=== PATIENT | female | born 1930 | race Caucasian/White ===

== ENCOUNTER → 2016-11-20 | Outpatient (REF) | payer MEDICARE, MEDICAID ==
[~2016-11-20] MED LIST: /MOXI40TA OR; ACET65TA OR; BABY81CH; BISO10TA2 OR; CORE12.5 OR; COZA100T OR; FURO20TA2 PO; HYDR-727; INDAPAMIDE; LANO0.1211 OR; MIRALEX OR; NITR0.4S SL; OLOP1OPD OU; OMEP20TA7 OR; POTA20TA2; PROA1AER INH; VITA100066 PO; WARF-20 PO; WARF1TAB OR; [UNRECOGNIZED DRUG - OTHER] OU
[2016-11-20 10:49] LABS: INR 1.81
== END ==
PROVIDERS: ATTEND Internal Medicine
DX: I48.0 Paroxysmal atrial fibrillation (principal); Z79.01 Long term (current) use of anticoagulants

== ENCOUNTER → 2016-12-25 | Outpatient (REF) | payer MEDICARE, MEDICAID ==
[2016-12-25 12:47] LABS: INR 1.74
== END ==
PROVIDERS: ATTEND Internal Medicine
DX: I48.0 Paroxysmal atrial fibrillation (principal); Z79.01 Long term (current) use of anticoagulants

== ENCOUNTER → 2017-01-01 | Outpatient (REF) | payer MEDICARE, MEDICAID ==
[2017-01-01 11:02] LABS: INR 1.88
== END | disposition home or self-care (01) ==
PROVIDERS: ATTEND Internal Medicine
DX: Z51.81 Encounter for therapeutic drug level monitoring (principal); Z79.01 Long term (current) use of anticoagulants; I48.0 Paroxysmal atrial fibrillation

== ENCOUNTER → 2017-01-08 | Outpatient (REF) | payer MEDICARE, MEDICAID ==
[2017-01-08 09:30] LABS: INR 1.63
== END ==
PROVIDERS: ATTEND Internal Medicine
DX: I48.0 Paroxysmal atrial fibrillation (principal); Z79.01 Long term (current) use of anticoagulants

== ENCOUNTER → 2017-01-15 | Outpatient (REF) | payer MEDICARE, MEDICAID ==
[2017-01-15 12:21] LABS: INR 2.1
== END ==
PROVIDERS: ATTEND Internal Medicine
DX: Z79.01 Long term (current) use of anticoagulants (principal); I48.0 Paroxysmal atrial fibrillation

== ENCOUNTER → 2017-01-21 | Outpatient (REF) | payer MEDICARE, MEDICAID ==
[2017-01-22 13:16] LABS: PERCENT SATURATION 6.8 % (13.2-37.4)
== END ==
LOC: M LAB REF 12:30
PROVIDERS: ATTEND Internal Medicine
DX: D64.9 Anemia, unspecified (principal)

== ENCOUNTER → 2017-01-22 | Outpatient (REF) | payer MEDICARE, MEDICAID | PROVIDERS: ATTEND Internal Medicine | DX: Z79.01 Long term (current) use of anticoagulants (principal); I48.0 Paroxysmal atrial fibrillation ==

== ENCOUNTER → 2017-01-29 | Outpatient (REF) | payer MEDICARE, MEDICAID ==
[2017-01-29 11:25] LABS: INR 2.67
== END ==
PROVIDERS: ATTEND Internal Medicine
DX: I48.0 Paroxysmal atrial fibrillation (principal); Z79.01 Long term (current) use of anticoagulants

== ENCOUNTER → 2017-02-05 | Outpatient (REF) | payer MEDICARE, MEDICAID ==
[2017-02-05 10:24] LABS: INR 2.58
== END ==
PROVIDERS: ATTEND Internal Medicine
DX: I48.0 Paroxysmal atrial fibrillation (principal); Z79.01 Long term (current) use of anticoagulants

== ENCOUNTER → 2017-02-12 | Outpatient (REF) | payer MEDICARE, MEDICAID ==
[2017-02-12 10:02] LABS: INR 2.76
== END ==
PROVIDERS: ATTEND Internal Medicine
DX: I48.0 Paroxysmal atrial fibrillation (principal); Z79.01 Long term (current) use of anticoagulants

== ENCOUNTER → 2017-02-26 | Outpatient (REF) | payer MEDICARE, MEDICAID ==
[2017-02-26 11:33] LABS: INR 3.36
== END ==
PROVIDERS: ATTEND Internal Medicine
DX: Z79.01 Long term (current) use of anticoagulants (principal); I48.0 Paroxysmal atrial fibrillation

== ENCOUNTER → 2017-03-05 | Outpatient (REF) | payer MEDICARE, MEDICAID ==
[2017-03-05 11:12] LABS: INR 3.18
== END ==
PROVIDERS: ATTEND Internal Medicine
DX: Z79.01 Long term (current) use of anticoagulants (principal); I48.2 Chronic atrial fibrillation

== ENCOUNTER → 2017-03-13 | Outpatient (REF) | payer MEDICARE, MEDICAID ==
[2017-03-13 11:28] LABS: VITAMIN B12 LEVEL 1266 PG/ML (247-911)
== END ==
PROVIDERS: ATTEND Internal Medicine
DX: D51.9 Vitamin B12 deficiency anemia, unspecified (principal); D64.9 Anemia, unspecified

== ENCOUNTER → 2017-03-19 | Outpatient (REF) | payer MEDICARE, MEDICAID ==
[2017-03-19 11:18] LABS: INR 2.86
== END ==
PROVIDERS: ATTEND Internal Medicine
DX: Z79.01 Long term (current) use of anticoagulants (principal); I48.0 Paroxysmal atrial fibrillation

== ENCOUNTER → 2017-03-26 | Outpatient (REF) | payer MEDICARE, MEDICAID ==
[2017-03-26 12:39] LABS: INR 2.9
== END ==
PROVIDERS: ATTEND Internal Medicine
DX: Z79.01 Long term (current) use of anticoagulants (principal); I48.0 Paroxysmal atrial fibrillation

== ENCOUNTER → 2017-04-16 | Outpatient (REF) | payer MEDICARE, MEDICAID ==
[2017-04-16 11:07] LABS: INR 2.48
== END ==
PROVIDERS: ATTEND Internal Medicine
DX: I48.91 Unspecified atrial fibrillation (principal)

== ENCOUNTER → 2017-05-07 | Outpatient (REF) | payer MEDICARE, MEDICAID ==
[~2017-05-07] MED LIST changes: +ASPI1TAB PO; +COZA100T2 PO; +DIGO0.12 PO; +FE G325T PO; +MIRA3350 PO; +OMEP40CA2 PO; +PRESCAP6 PO; +SENN-15 PO; +TYLE325T5 PO; +VITA500T3 PO; +ZEBE1TAB PO
[2017-05-07 11:00] LABS: INR 2.72
== END ==
PROVIDERS: ATTEND Internal Medicine
DX: Z79.01 Long term (current) use of anticoagulants (principal); I48.0 Paroxysmal atrial fibrillation

== ENCOUNTER 2017-05-08 09:52 | Emergency (ER) | payer MEDICARE, MEDICAID ==
[~2017-05-08] VITALS: Ht 147.3 cm; Wt 46.2 kg
[~2017-05-08 09:52] MED LIST changes: -ASPI1TAB PO; -COZA100T2 PO; -DIGO0.12 PO; -FE G325T PO; -MIRA3350 PO; -OMEP40CA2 PO; -PRESCAP6 PO; -PROA1AER INH; +PROAAER10 INH; -SENN-15 PO; -TYLE325T5 PO; -VITA500T3 PO; -ZEBE1TAB PO
[2017-05-08 09:53] VITALS: BP 185/91
[2017-05-08] MEDS ORDERED: MIRA3350 PO (10:20)
[2017-05-08] MEDS ORDERED: PRESCAP6 PO (10:20)
[2017-05-08] MEDS ORDERED: DIGO0.12 PO (10:20)
[2017-05-08] MEDS ORDERED: FE G325T PO (10:20)
[2017-05-08] MEDS ORDERED: COZA100T2 PO (10:20)
[2017-05-08] MEDS ORDERED: SENN-3 PO (10:20)
[2017-05-08] MEDS ORDERED: ASPI1TAB PO (10:20)
[2017-05-08] MEDS ORDERED: ZEBE1TAB PO (10:20)
[2017-05-08] MEDS ORDERED: TYLE325T5 PO (10:20)
[2017-05-08] MEDS ORDERED: VITA500T3 PO (10:20)
[2017-05-08] MEDS ORDERED: OMEP40CA2 PO (10:20)
[2017-05-08] MEDS ORDERED: FLEET OIL RETENTION ENEMA PR PRN (11:15)
[2017-05-08] MEDS ORDERED: MAGNESIUM CITRATE 300 ML BTL PO ONE (12:15)
== END 2017-05-08 12:43 | disposition home or self-care (01) ==
LOC: M ED 10:50
DX: K56.41 Fecal impaction (principal); K59.00 Constipation, unspecified; I25.2 Old myocardial infarction; Z85.00 Personal history of malignant neoplasm of unspecified digestive organ; E78.00 Pure hypercholesterolemia, unspecified; N19 Unspecified kidney failure; Z95.0 Presence of cardiac pacemaker; Z90.3 Acquired absence of stomach [part of]; Z79.82 Long term (current) use of aspirin; Z79.01 Long term (current) use of anticoagulants; Z79.899 Other long term (current) drug therapy; Z88.0 Allergy status to penicillin; Z88.8 Allergy status to other drugs, medicaments and biological substances; Z88.1 Allergy status to other antibiotic agents

== ENCOUNTER → 2017-06-04 | Outpatient (REF) | payer MEDICARE, MEDICAID ==
[~2017-06-04] MED LIST changes: +ASPI1TAB PO; +COZA100T2 PO; +DIGO0.12 PO; +FE G325T PO; +MIRA3350 PO; +OMEP40CA2 PO; +PRESCAP6 PO; +SENN-3 PO; +TYLE325T5 PO; +VITA500T3 PO; +ZEBE1TAB PO
[2017-06-04 10:01] LABS: CALCIUM LEVEL 9.9 MG/DL (8.8-10.2); CREATININE FOR GFR 0.96 MG/DL (0.55-1.02); GLOMERULAR FILTRATION RATE 58.4 (>32)
== END ==
PROVIDERS: ATTEND Nurse Practitioner Family
DX: I10 Essential (primary) hypertension (principal)

== ENCOUNTER → 2017-06-04 | Outpatient (REF) | payer MEDICARE, MEDICAID ==
[2017-06-04 09:37] LABS: INR 2.54
== END ==
PROVIDERS: ATTEND Internal Medicine
DX: I48.0 Paroxysmal atrial fibrillation (principal); Z51.81 Encounter for therapeutic drug level monitoring; Z79.01 Long term (current) use of anticoagulants; I10 Essential (primary) hypertension

== ENCOUNTER → 2017-07-15 | Outpatient (REF) | payer MEDICARE, MEDICAID ==
[2017-07-15 19:10] LABS: FERRITIN 48 NG/ML (8-252)
[2017-07-15 19:25] LABS: VITAMIN B12 LEVEL 1459 PG/ML (247-911)
== END ==
LOC: M LAB REF 16:34
PROVIDERS: ATTEND Internal Medicine
DX: D50.9 Iron deficiency anemia, unspecified (principal)

== ENCOUNTER → 2017-08-27 | Outpatient (CLI) | payer MEDICARE, MEDICAID ==
[2017-08-27 19:40] LABS: INR 2.24
== END ==
LOC: M SMT 14:47
PROVIDERS: ATTEND Internal Medicine
DX: Z79.01 Long term (current) use of anticoagulants (principal); I48.0 Paroxysmal atrial fibrillation

== ENCOUNTER → 2017-09-24 | Outpatient (REF) | payer MEDICARE, MEDICAID ==
[2017-09-24 13:18] LABS: INR 2.91
== END ==
PROVIDERS: ATTEND Internal Medicine
DX: I48.0 Paroxysmal atrial fibrillation (principal); Z79.01 Long term (current) use of anticoagulants

== ENCOUNTER → 2017-10-22 | Outpatient (REF) | payer MEDICARE, MEDICAID ==
[2017-10-22 10:03] LABS: INR 2.55
== END ==
PROVIDERS: ATTEND Internal Medicine
DX: Z51.81 Encounter for therapeutic drug level monitoring (principal); Z79.01 Long term (current) use of anticoagulants; I48.0 Paroxysmal atrial fibrillation

== ENCOUNTER → 2017-12-17 | Outpatient (REF) | payer MEDICARE, MEDICAID ==
[2017-12-17 11:40] LABS: INR 2.76; PROTHROMBIN TIME 30.4 SECONDS (12.4-14.5)
== END ==
DX: Z79.01 Long term (current) use of anticoagulants (principal)
CPT/HCPCS: 85610

== ENCOUNTER → 2018-01-09 | Outpatient (REF) | payer MEDICARE, MEDICAID ==
[2018-01-09 18:08] LABS: PHOSPHORUS LEVEL 2.7 MG/DL (2.5-4.9)
[2018-01-09 18:08] LABS: IRON (FE) 105 UG/DL (50-170); PERCENT SATURATION 34.7 % (13.2-45.0); TOTAL IRON BINDING CAPACITY 303 UG/DL (250-450)
[2018-01-09 18:14] LABS: VITAMIN B12 LEVEL 438 PG/ML (247-911)
== END ==
LOC: M LAB REF 17:12
DX: D50.9 Iron deficiency anemia, unspecified (principal); D51.9 Vitamin B12 deficiency anemia, unspecified
CPT/HCPCS: 83550

== ENCOUNTER → 2018-01-14 | Outpatient (REF) | payer MEDICARE, MEDICAID ==
[2018-01-14 11:12] LABS: INR 2.59; PROTHROMBIN TIME 28.8 SECONDS (12.4-14.5)
== END ==
DX: Z79.01 Long term (current) use of anticoagulants (principal); I48.0 Paroxysmal atrial fibrillation
CPT/HCPCS: 85610

== ENCOUNTER → 2018-01-21 | Outpatient (REF) | payer MEDICARE, MEDICAID ==
[2018-01-21 11:05] LABS: CHOLESTEROL LEVEL 190 MG/DL (<200); CHOLESTEROL RISK RATIO 3.958 (<5); HDL CHOLESTEROL 48 MG/DL (>40); LDL CHOLESTEROL 110.6 MG/DL (<100); NON-HDL-C 142 MG/DL; TRIGLYCERIDES LEVEL 157 MG/DL (<150)
== END ==
DX: E78.5 Hyperlipidemia, unspecified (principal)
CPT/HCPCS: 80061

== ENCOUNTER → 2018-03-11 | Outpatient (REF) | payer MEDICARE, MEDICAID ==
[2018-03-11 10:53] LABS: INR 2.59; PROTHROMBIN TIME 28.8 SECONDS (12.4-14.5)
== END ==
DX: Z79.01 Long term (current) use of anticoagulants (principal); I48.0 Paroxysmal atrial fibrillation
CPT/HCPCS: 85610

== ENCOUNTER → 2018-04-08 | Outpatient (REF) | payer MEDICARE, MEDICAID ==
[2018-04-08 09:57] LABS: INR 2.76; PROTHROMBIN TIME 30.4 SECONDS (12.4-14.5)
== END ==
DX: I48.0 Paroxysmal atrial fibrillation (principal); Z79.01 Long term (current) use of anticoagulants
CPT/HCPCS: 85610

== ENCOUNTER → 2018-05-06 | Outpatient (REF) | payer MEDICARE, MEDICAID ==
[2018-05-06 09:57] LABS: INR 2.26; PROTHROMBIN TIME 25.8 SECONDS (12.4-14.5)
== END ==
DX: I48.0 Paroxysmal atrial fibrillation (principal); Z79.01 Long term (current) use of anticoagulants
CPT/HCPCS: 85610

== ENCOUNTER → 2018-06-03 | Outpatient (REF) | payer MEDICARE, MEDICAID ==
[2018-06-03 09:41] LABS: INR 2.64; PROTHROMBIN TIME 28.7 SECONDS (12.1-14.4)
== END ==
DX: I48.0 Paroxysmal atrial fibrillation (principal); Z79.01 Long term (current) use of anticoagulants
CPT/HCPCS: 85610

== ENCOUNTER → 2018-07-01 | Outpatient (REF) | payer MEDICARE, MEDICAID ==
[2018-07-01 09:36] LABS: INR 3.29; PROTHROMBIN TIME 34.2 SECONDS (12.1-14.4)
== END ==
DX: Z51.81 Encounter for therapeutic drug level monitoring (principal); Z79.01 Long term (current) use of anticoagulants; I48.0 Paroxysmal atrial fibrillation
CPT/HCPCS: 85610

== ENCOUNTER → 2018-07-08 | Outpatient (REF) | payer MEDICARE, MEDICAID ==
[2018-07-08 09:36] LABS: INR 2.32; PROTHROMBIN TIME 25.9 SECONDS (12.1-14.4)
== END ==
DX: I48.0 Paroxysmal atrial fibrillation (principal); Z79.01 Long term (current) use of anticoagulants
CPT/HCPCS: 85610

== ENCOUNTER → 2018-08-05 | Outpatient (REF) | payer MEDICARE, MEDICAID ==
[2018-08-05 10:22] LABS: INR 2.93; PROTHROMBIN TIME 31.2 SECONDS (12.1-14.4)
== END ==
DX: Z79.01 Long term (current) use of anticoagulants (principal); I48.0 Paroxysmal atrial fibrillation
CPT/HCPCS: 85610

== ENCOUNTER 2018-08-06 10:16 | Inpatient (IN) | payer MEDICARE, MEDICAID ==
[2018-08-06 11:03] LABS: BASO # 0.1 10^3/uL (0.0-0.2); BASO % 0.7 % (0.0-1.0); EOS # 0.1 10^3/uL (0.0-0.50); EOS % 1.2 % (0.0-3.0); HEMATOCRIT 42.4 % (36.0-47.0); HEMOGLOBIN 14.1 g/dl (12.0-15.5); IMMATURE GRANULOCYTE % 0.3 % (0-3.0); LYMPH # 1.6 10^3/uL (1.5-4.5); LYMPH % 22.1 % (24.0-44.0); MEAN CORPUSCULAR HEMOGLOBIN 29.8 pg (27.0-33.0); MEAN CORPUSCULAR HGB CONC 33.3 g/dl (32.0-36.5); MEAN CORPUSCULAR VOLUME 89.6 fl (80.0-96.0); MONO # 0.6 10^3/uL (0.0-0.8); MONO % 7.9 % (0.0-5.0); NEUTROPHILS % 67.8 % (36.0-66.0); PLATELET COUNT, AUTOMATED 193 10^3/uL (150-450); RED BLOOD COUNT 4.73 10^6/uL (4.00-5.40); RED CELL DISTRIBUTION WIDTH 14.3 % (11.5-14.5); WHITE BLOOD COUNT 7.4 10^3/uL (4.0-10.0)
[2018-08-06 11:10] LABS: INR 2.99; PROTHROMBIN TIME 31.7 SECONDS (12.1-14.4)
[2018-08-06] MEDS: NS 500 ML IV (11:17)
[2018-08-06 11:54] LABS: ALBUMIN 3.8 GM/DL (3.2-5.2); ALBUMIN/GLOBULIN RATIO 1.12 (1.00-1.93); ALKALINE PHOSPHATASE 107 U/L (45-117); ALT/SGPT 18 U/L (12-78); ANION GAP 5 MEQ/L (8-16); AST/SGOT 36 U/L (7-37); BILIRUBIN,DIRECT < 0.1 MG/DL (0.0-0.2); BILIRUBIN,TOTAL 0.4 MG/DL (0.2-1.0); BLOOD UREA NITROGEN 21 MG/DL (7-18); CALCIUM LEVEL 9.8 MG/DL (8.8-10.2); CARBON DIOXIDE LEVEL 36 MEQ/L (21-32); CHLORIDE LEVEL 97 MEQ/L (98-107); CPK CREATINE PHOSPHOKINASE 63 U/L (26-192); CREATININE FOR GFR 1.04 MG/DL (0.55-1.30); DIGOXIN LEVEL 1.3 NG/ML (0.5-2.0); GLOMERULAR FILTRATION RATE 53.1 (>32); GLUCOSE, FASTING 89 MG/DL (70-100); MB/CK RELATIVE INDEX 2.54 (< OR =4); POTASSIUM SERUM 4.1 MEQ/L (3.5-5.1); SODIUM LEVEL 138 MEQ/L (136-145); TOTAL PROTEIN 7.2 GM/DL (6.4-8.2); TROPONIN I 0.05 NG/ML (< 0.10)
[2018-08-06 12:46] LABS: KETONE, URINE AUTO RFX NEGATIVE (NEGATIVE); MUCUS, URINE RFX SMALL (NEGATIVE); NITRITE, URINE AUTO RFX NEGATIVE (NEGATIVE); RBC, URINE AUTO RFX 4 /HPF (0-3); SPECIFIC GRAVITY UR AUTO RFX 1.004 (1.002-1.035); SQUAM EPITHELIAL CELL UR AURFX 0 /HPF (0-6); WBC, URINE AUTO RFX 2 /HPF (0-3)
[2018-08-06 12:54] LABS: LEUKOCYTE ESTERASE UR AUTO RFX TRACE (NEGATIVE)
[2018-08-06] MEDS: LACTULOSE 20 GM/30 ML SYRUP UD PO ×2 (16:58→23:37)
[2018-08-06] MEDS: ONDANSETRON 4 MG ORAL DISINTEGRATING TAB (Q0162 PER 1MG) PO (18:45)
[2018-08-06] MEDS: KETOROLAC 60 MG/2 ML VIAL (J1885) IM (18:48)
[2018-08-06] MEDS: NS 1,000 ML IV (20:35)
[2018-08-06] MEDS ORDERED: NITROGLYCERIN 0.4 MG SUBL TABLET SL (21:00)
[2018-08-06] MEDS ORDERED: ALBUTEROL SULFATE 2.5 MG/0.5 ML INH NEB SOLN NEB (21:00)
[2018-08-06] MEDS: ANUSOL HC CREAM 30GM PR (21:00)
[2018-08-06] MEDS: ONDANSETRON 4MG/2ML VIAL (J2405) IV (21:24)
[2018-08-06] MEDS: MORPHINE 4 MG/ML 1ML VIAL/SYRINGE (J2270) IV (23:14)
[2018-08-06] MEDS: OCUVITE 1 TAB PO (23:37)
[2018-08-06] MEDS: SENOKOT S TAB PO (23:37)
[2018-08-06] MEDS: BISOPROLOL FUMARATE 10 MG TAB PO (23:38)
[2018-08-06] MEDS: LOSARTAN 50 MG TAB PO (23:38)
[2018-08-06] MEDS: BISACODYL 10 MG SUPP PR (23:39)
[2018-08-06] MEDS: ACETAMINOPHEN 650MG ER TAB (TYLENOL ARTHRITIS) PO (23:39)
[2018-08-07 06:49] LABS: BASO % 0.3 % (0.0-1.0); HEMATOCRIT 50.1 % (36.0-47.0); IMMATURE GRANULOCYTE % 0.2 % (0-3.0); LYMPH # 0.3 10^3/uL (1.5-4.5); LYMPH % 3.1 % (24.0-44.0); MEAN CORPUSCULAR HGB CONC 32.5 g/dl (32.0-36.5); MEAN CORPUSCULAR VOLUME 92.1 fl (80.0-96.0); MONO # 0.8 10^3/uL (0.0-0.8); MONO % 7.2 % (0.0-5.0); NEUTROPHILS # 9.8 10^3/uL (1.8-7.7); NEUTROPHILS % 89.2 % (36.0-66.0); PLATELET COUNT, AUTOMATED 188 10^3/uL (150-450); RED BLOOD COUNT 5.44 10^6/uL (4.00-5.40); RED CELL DISTRIBUTION WIDTH 14.8 % (11.5-14.5)
[2018-08-07 06:53] LABS: HEMOGLOBIN 16.3 g/dl (12.0-15.5)
[2018-08-07 07:00] LABS: INR 3.58; PROTHROMBIN TIME 36.6 SECONDS (12.1-14.4)
[2018-08-07 07:30] LABS: ANION GAP 15 MEQ/L (8-16); BLOOD UREA NITROGEN 27 MG/DL (7-18); CALCIUM LEVEL 10.7 MG/DL (8.8-10.2); CARBON DIOXIDE LEVEL 23 MEQ/L (21-32); CHLORIDE LEVEL 103 MEQ/L (98-107); CREATININE FOR GFR 1.68 MG/DL (0.55-1.30); FREE THYROXINE INDEX 3.5 % (1.3-4.8); GLOMERULAR FILTRATION RATE 30.5 (>32); GLUCOSE, FASTING 177 MG/DL (70-100); POTASSIUM SERUM 3.6 MEQ/L (3.5-5.1); SODIUM LEVEL 141 MEQ/L (136-145); T UPTAKE 34 % (30-39); THYROXINE (T4) 10.3 UG/DL (4.5-12.0)
[2018-08-07] MEDS: FERROUS GLUCONATE 324 MG TAB PO (09:37)
[2018-08-07] MEDS: OCUVITE 1 TAB PO ×2 (09:37→22:55)
[2018-08-07] MEDS: FUROSEMIDE 20 MG TAB PO (09:37)
[2018-08-07] MEDS: OMEPRAZOLE 20 MG CAP PO (09:37)
[2018-08-07] MEDS: SENOKOT S TAB PO ×2 (09:37→22:56)
[2018-08-07] MEDS: MIRALAX *UNIT DOSE* 17GM PACKET PO (09:37)
[2018-08-07] MEDS: ASPIRIN 81 MG ENTERIC TAB PO (09:37)
[2018-08-07] MEDS: ANUSOL HC CREAM 30GM PR ×2 (09:37→22:56)
[2018-08-07] MEDS: DIGOXIN 0.125 MG TAB PO (09:55)
[2018-08-07] MEDS: ACETAMINOPHEN 650MG ER TAB (TYLENOL ARTHRITIS) PO ×2 (10:28→22:55)
[2018-08-07] MEDS: NS 1,000 ML IV ×2 (10:30→23:18)
[2018-08-07] MEDS ORDERED: NS 1,000 ML IV (10:30)
[2018-08-07] MEDS: NS 500 ML IV (10:30)
[2018-08-07] MEDS: FLEET ENEMA PR (12:15)
[2018-08-07] MEDS ORDERED: FLEET OIL RETENTION ENEMA PR (14:45)
[2018-08-07] MEDS: traMADol 50 MG TAB PO (14:54)
[2018-08-07] MEDS ORDERED: WARFARIN SOD 2 MG TAB PO (17:00)
[2018-08-07] MEDS: FLEET OIL RETENTION ENEMA PR (17:24)
[2018-08-07] MEDS: SOD POLYSTYRENE SULFONATE SUSP 30 GM/120 ML ENEMA PR (21:29)
[2018-08-07] MEDS: BISOPROLOL FUMARATE 10 MG TAB PO (23:01)
[2018-08-08 06:44] LABS: HEMATOCRIT 46.9 % (36.0-47.0); HEMOGLOBIN 15.5 g/dl (12.0-15.5); MEAN CORPUSCULAR HEMOGLOBIN 29.9 pg (27.0-33.0); MEAN CORPUSCULAR VOLUME 90.5 fl (80.0-96.0); PLATELET COUNT, AUTOMATED 177 10^3/uL (150-450); RED BLOOD COUNT 5.18 10^6/uL (4.00-5.40); RED CELL DISTRIBUTION WIDTH 15.6 % (11.5-14.5); WHITE BLOOD COUNT 8.5 10^3/uL (4.0-10.0)
[2018-08-08 06:50] LABS: ADD MANUAL DIFFER YES; DIFF SLIDE NUMBER 55; POS COUNT POS FLAG; POSITIVE MORPH POS FLAG
[2018-08-08 06:55] LABS: PROTHROMBIN TIME 65.9 SECONDS (12.1-14.4)
[2018-08-08 07:23] LABS: INR 7.51
[2018-08-08] MEDS ORDERED: AZTREONAM 1 GM in D5W MINI-BAG PLUS 50 ML IV (07:45)
[2018-08-08 07:49] LABS: ANION GAP 15 MEQ/L (8-16); BLOOD UREA NITROGEN 44 MG/DL (7-18); CALCIUM LEVEL 8.4 MG/DL (8.8-10.2); CARBON DIOXIDE LEVEL 20 MEQ/L (21-32); CHLORIDE LEVEL 108 MEQ/L (98-107); CREATININE FOR GFR 1.96 MG/DL (0.55-1.30); GLOMERULAR FILTRATION RATE 25.6 (>32); GLUCOSE, FASTING 94 MG/DL (70-100); MAGNESIUM LEVEL 3.3 MG/DL (1.8-2.4); POTASSIUM SERUM 5.4 MEQ/L (3.5-5.1); SODIUM LEVEL 143 MEQ/L (136-145)
[2018-08-08 08:31] LABS: BANDS 28 % (< 11); LYMPHOCYTES 10 % (16-52); METAMYELOCYTES 5 % (0-0); MONOCYTES 3 % (0-8); NEUTROPHILS 54 % (35-75)
[2018-08-08 08:33] LABS: PLATELET ESTIMATE NORMAL (NORMAL); TOXIC VACUOLATION 1+
[2018-08-08] MEDS: SENOKOT S TAB PO ×2 (09:49→20:05)
[2018-08-08] MEDS: NS 1,000 ML IV ×2 (09:49→21:58)
[2018-08-08] MEDS: OCUVITE 1 TAB PO ×2 (09:49→20:06)
[2018-08-08] MEDS: OMEPRAZOLE 20 MG CAP PO (09:50)
[2018-08-08] MEDS: PHYTONADIONE 1.25 MG 1/4 TAB PO (09:51)
[2018-08-08] MEDS: DIGOXIN 0.125 MG TAB PO (09:51)
[2018-08-08] MEDS: MIRALAX *UNIT DOSE* 17GM PACKET PO (09:51)
[2018-08-08] MEDS: ASPIRIN 81 MG ENTERIC TAB PO (09:51)
[2018-08-08] MEDS: ANUSOL HC CREAM 30GM PR ×2 (10:06→20:06)
[2018-08-08] MEDS: AZTREONAM 0.5 GM in D5W 50 ML IV ×2 (10:21→18:38)
[2018-08-08] MEDS: traMADol 50 MG TAB PO (13:32)
[2018-08-08] MEDS: ACETAMINOPHEN 650MG ER TAB (TYLENOL ARTHRITIS) PO (20:05)
[2018-08-08] MEDS: BISOPROLOL FUMARATE 10 MG TAB PO (20:06)
[2018-08-09] MEDS: AZTREONAM 0.5 GM in D5W 50 ML IV ×2 (01:53→09:48)
[2018-08-09] MEDS: traMADol 50 MG TAB PO ×2 (03:09→07:36)
[2018-08-09 06:58] LABS: ANION GAP 16 MEQ/L (8-16); BLOOD UREA NITROGEN 65 MG/DL (7-18); CALCIUM LEVEL 8.1 MG/DL (8.8-10.2); CARBON DIOXIDE LEVEL 16 MEQ/L (21-32); CHLORIDE LEVEL 109 MEQ/L (98-107); CREATININE FOR GFR 2.79 MG/DL (0.55-1.30); GLUCOSE, FASTING 78 MG/DL (70-100); MAGNESIUM LEVEL 3.6 MG/DL (1.8-2.4); POTASSIUM SERUM 5.4 MEQ/L (3.5-5.1); SODIUM LEVEL 141 MEQ/L (136-145)
[2018-08-09 07:10] LABS: HEMATOCRIT 45.7 % (36.0-47.0); HEMOGLOBIN 14.9 g/dl (12.0-15.5); MEAN CORPUSCULAR HEMOGLOBIN 30.1 pg (27.0-33.0); MEAN CORPUSCULAR HGB CONC 32.6 g/dl (32.0-36.5); MEAN CORPUSCULAR VOLUME 92.3 fl (80.0-96.0); PLATELET COUNT, AUTOMATED 169 10^3/uL (150-450); RED BLOOD COUNT 4.95 10^6/uL (4.00-5.40); RED CELL DISTRIBUTION WIDTH 16.5 % (11.5-14.5); WHITE BLOOD COUNT 7.4 10^3/uL (4.0-10.0)
[2018-08-09 07:12] LABS: ADD MANUAL DIFFER YES; DIFF SLIDE NUMBER 35; POSITIVE MORPH POS FLAG
[2018-08-09 07:13] LABS: PROTHROMBIN TIME 53.2 SECONDS (12.1-14.4)
[2018-08-09 07:54] LABS: ATYPICAL LYMPH 4 % (0-5); BANDS 11 % (< 11); LYMPHOCYTES 16 % (16-52); METAMYELOCYTES 2 % (0-0); MONOCYTES 3 % (0-8); NEUTROPHILS 64 % (35-75); PLATELET ESTIMATE NORMAL (NORMAL); TOXIC GRANULATION 1+; TOXIC VACUOLATION 1+
[2018-08-09 07:55] LABS: ANISOCYTOSIS 1+; BURR CELLS 1+; POIKILOCYTOSIS 1+
[2018-08-09 08:53] LABS: INR 5.74
[2018-08-09] MEDS: MIRALAX *UNIT DOSE* 17GM PACKET PO (09:46)
[2018-08-09] MEDS: OMEPRAZOLE 20 MG CAP PO (09:46)
[2018-08-09] MEDS: SENOKOT S TAB PO (09:46)
[2018-08-09] MEDS: DIGOXIN 0.125 MG TAB PO (09:47)
[2018-08-09] MEDS: OCUVITE 1 TAB PO (09:48)
[2018-08-09] MEDS: FERROUS GLUCONATE 324 MG TAB PO (09:48)
[2018-08-09] MEDS: ANUSOL HC CREAM 30GM PR (09:51)
[2018-08-09] MEDS: ASPIRIN 81 MG ENTERIC TAB PO (09:51)
[2018-08-09] MEDS: ACETAMINOPHEN 650MG ER TAB (TYLENOL ARTHRITIS) PO (10:44)
[2018-08-09] MEDS ORDERED: SODIUM BICARBONATE 150 MEQ in D5W 1,000 ML IV (11:00)
[2018-08-09] MEDS ORDERED: MORPHINE 4 MG/ML 1ML VIAL/SYRINGE (J2270) IV ×2 (11:00→12:30)
[2018-08-09] MEDS ORDERED: DEXTROSE 50% 50 ML SYRINGE As Ordered (11:16)
[2018-08-09 11:21] LABS: BEDSIDE GLUCOSE 53 MG/DL (83-110)
[2018-08-09] MEDS ORDERED: LORazepam 2 MG/ML VIAL (J2060) IV (12:30)
[2018-08-09 12:53] LABS: ALBUMIN 1.9 GM/DL (3.2-5.2); ALBUMIN/GLOBULIN RATIO 0.66 (1.00-1.93); ALKALINE PHOSPHATASE 170 U/L (45-117); ALT/SGPT 191 U/L (12-78); ANION GAP 19 MEQ/L (8-16); AST/SGOT 270 U/L (7-37); BILIRUBIN,TOTAL 1.2 MG/DL (0.2-1.0); BLOOD UREA NITROGEN 73 MG/DL (7-18); CALCIUM LEVEL 8.1 MG/DL (8.8-10.2); CARBON DIOXIDE LEVEL 11 MEQ/L (21-32); CHLORIDE LEVEL 112 MEQ/L (98-107); CPK CREATINE PHOSPHOKINASE 149 U/L (26-192); CREATININE FOR GFR 3.13 MG/DL (0.55-1.30); GLOMERULAR FILTRATION RATE 14.9 (>32); GLUCOSE, FASTING 133 MG/DL (70-100); POTASSIUM SERUM 6.3 MEQ/L (3.5-5.1); SODIUM LEVEL 142 MEQ/L (136-145); TOTAL PROTEIN 4.8 GM/DL (6.4-8.2); TROPONIN I 0.13 NG/ML (< 0.10)
[2018-08-09] MEDS ORDERED: WARFARIN SOD 2 MG TAB PO (17:00)
== END 2018-08-09 16:13 | disposition expired | DRG 389 ==
LOC: M ICU 08-09 11:25 → M ED 10:16 → M ED INP 20:35 → M MS5PR 22:49
DX: K56.609 Unspecified intestinal obstruction, unspecified as to partial versus complete obstruction (principal); N39.0 Urinary tract infection, site not specified; N17.9 Acute kidney failure, unspecified; I50.32 Chronic diastolic (congestive) heart failure; N13.30 Unspecified hydronephrosis; D62 Acute posthemorrhagic anemia; K92.2 Gastrointestinal hemorrhage, unspecified; K56.41 Fecal impaction; Z85.038 Personal history of other malignant neoplasm of large intestine; Z85.028 Personal history of other malignant neoplasm of stomach; I48.91 Unspecified atrial fibrillation; K21.9 Gastro-esophageal reflux disease without esophagitis; E55.9 Vitamin D deficiency, unspecified; I11.0 Hypertensive heart disease with heart failure; Z95.0 Presence of cardiac pacemaker; J44.9 Chronic obstructive pulmonary disease, unspecified; R33.9 Retention of urine, unspecified; E86.0 Dehydration; B96.29 Other Escherichia coli [E. coli] as the cause of diseases classified elsewhere; Z51.5 Encounter for palliative care; Z79.01 Long term (current) use of anticoagulants; Z79.899 Other long term (current) drug therapy; Z79.82 Long term (current) use of aspirin; Z88.8 Allergy status to other drugs, medicaments and biological substances; Z88.0 Allergy status to penicillin; Z88.1 Allergy status to other antibiotic agents; K64.8 Other hemorrhoids